=== PATIENT | female | born 1985 | race Caucasian/White ===

== ENCOUNTER 2017-11-11 04:48 | Emergency (ER) | payer SELFPAY ==
[~2017-11-11] VITALS: Ht 165.1 cm; Wt 70.5 kg
[2017-11-11 05:00] VITALS: BP 117/73; TEMP 98.2
[2017-11-11 06:00] VITALS: PULSE 78
== END 2017-11-11 06:00 | disposition home or self-care (01) ==
LOC: COL.ER 04:48
DX: B99.9 Unspecified infectious disease (principal); H10.89 Other conjunctivitis

== ENCOUNTER 2017-12-12 10:06 | Emergency (ER) | payer SELFPAY ==
[~2017-12-12] VITALS: Ht 165.1 cm; Wt 68.2 kg
[2017-12-12 10:12] VITALS: BP 130/75; TEMP 98.1
[2017-12-12] MEDS ORDERED: CEPHALEXIN500 M1 PO (10:55)
[2017-12-12 11:08] VITALS: PULSE 68
== END 2017-12-12 11:08 | disposition home or self-care (01) ==
LOC: COL.ER 10:06
DX: L08.89 Other specified local infections of the skin and subcutaneous tissue (principal); Z98.890 Other specified postprocedural states; Z88.0 Allergy status to penicillin; Z88.5 Allergy status to narcotic agent